=== PATIENT | female | born 1995 | race African-American/Black ===

== ENCOUNTER 2023-07-11 19:21 | Emergency (ER) | payer OTHER ==
[2023-07-11 20:43] VITALS: BP 152/98; O2SAT 100
[2023-07-11] MEDS ORDERED: IBUPROFEN 800 MG TABLET PO STA (20:49)
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
== END 2023-07-11 22:03 | disposition home or self-care (01) ==
LOC: ED 19:21
DX: S16.1XXA Strain of muscle, fascia and tendon at neck level, initial encounter (principal); S39.012A Strain of muscle, fascia and tendon of lower back, initial encounter; V59.49XA Driver of pick-up truck or van injured in collision with other motor vehicles in traffic accident, initial encounter; Y93.89 Activity, other specified; Y92.410 Unspecified street and highway as the place of occurrence of the external cause
CPT/HCPCS: 72040; 72070; 99283; A9270

== ENCOUNTER 2023-08-03 14:49 | Outpatient (CLI) | payer OTHER ==
--- NOTE | 2023-08-04 10:54 | Ultrasound Report ---
PROCEDURE: Axilla INDICATIONS: RIGHT AXILLARY MASS TECHNIQUE: Color flow and Real-time focused scanning was performed of the right axilla, with image documentation . COMPARISON: None. FINDINGS: There is a 2.2 x 0.4 x 3.7 cm oval hypoechoic area within the skin corresponding to area o f clinical concern in the right axilla. There is posterior acoustic enhancement. Color-flow imaging d emonstrates no internal vascularity. There is a visible skin tract. IMPRESSION: Right axillary skin based 3.7 cm mass with visible skin tract corresponding to area of c linical concern. Finding is benign and most consistent with epidermal inclusion cyst. Recommend clini jennifer follow-up. Reviewed by: Soniya Kingston MD on 08/04/2023 10:52 AM PST Approved by: Soniya Kingston MD on 08/04/2023 10:52 AM PST Station ID: [id number]
== END 2023-08-03 14:50 | disposition home or self-care (01) ==
LOC: DI 14:49
PROVIDERS: ATTEND Nurse Practitioner Family
DX: R22.31 Localized swelling, mass and lump, right upper limb (principal)

== ENCOUNTER 2023-08-07 05:20 | Emergency (ER) | payer OTHER ==
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
[2023-08-07 06:12] LABS: BILIRUBIN,URINE NEGATIVE (NEGATIVE); GLUCOSE, URINE (UA) NEGATIVE (NEGATIVE); KETONES,URINE (UA) NEGATIVE (NEGATIVE); LEUKOCYTE ESTERASE, URINE TRACE (NEGATIVE); NITRITE,URINE NEGATIVE (NEGATIVE); OCCULT BLOOD,URINE LARGE (NEGATIVE); PH,URINE 6.5 PH (5.0-7.5); PROTEIN,URINE NEGATIVE (NEGATIVE); UROBILINOGEN,URINE 0.2 (NORMAL) E.U./dL (NORMAL)
[2023-08-07 06:13] LABS: BASOPHILS % (AUTO) 0.4 %; EOSINOPHILS # (AUTO) 0.1 10^3/uL (0.0-0.7); EOSINOPHILS % (AUTO) 1.2 %; HCT - HEMATOCRIT 40.5 % (37.0-47.0); HGB - HEMOGLOBIN 12.9 g/dL (12.0-16.0); LYMPHOCYTES # (AUTO) 1.9 10^3/uL (1.5-3.5); LYMPHOCYTES % (AUTO) 28.4 %; MEAN CORPUSCULAR HEMOGLOBIN 28.7 pg (27.0-31.0); MEAN CORPUSCULAR HGB CONC 31.9 g/dL (32.0-36.0); MEAN PLATELET VOLUME 9.6 fL (7.9-10.8); MONOCYTES # (AUTO) 0.6 10^3/uL (0.0-1.0); MONOCYTES % (AUTO) 8.6 %; NEUTROPHILS # (AUTO) 4.1 10^3/uL (1.5-6.6); PLT - PLATELET COUNT 381 10^3/uL (130-450); RED CELL DISTRIBUTION WIDTH 13.5 % (12.0-15.0); WHITE BLOOD COUNT 6.7 x10^3/uL (4.8-10.8)
[2023-08-07 06:17] LABS: CLARITY,URINE HAZY (CLEAR); HCG UR QUAL POSITIVE
[2023-08-07 06:24] LABS: RBC,URINE TNTC /HPF (0-5); WBC,URINE 0-3 /HPF (0-5)
[2023-08-07 06:25] LABS: BACTERIA,URINE Rare /HPF (None Seen); MUCUS,URINE Few Strands; SQUAMOUS EPITHELIAL CELL,UR FEW Squamous (<= Few)
[2023-08-07 07:14] LABS: ALBUMIN 4.3 g/dL (3.2-5.5); ALBUMIN/GLOBULIN RATIO 1.3 (1.0-2.2); BILIRUBIN,TOTAL 0.3 mg/dL (0.2-1.0); CALCIUM 9.1 mg/dL (8.5-10.3); CREATININE 0.8 mg/dL (0.6-1.3); POTASSIUM 3.6 mmol/L (3.5-4.5); TOTAL PROTEIN 7.6 g/dL (6.4-8.9)
[2023-08-07 07:57] VITALS: BP 129/86; O2SAT 98
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
== END 2023-08-07 07:51 | disposition home or self-care (01) ==
LOC: ED 05:20
DX: O20.9 Hemorrhage in early pregnancy, unspecified (principal); Z3A.01 Less than 8 weeks gestation of pregnancy
CPT/HCPCS: 36415; 80053; 81001; 81003; 81025; 83690; 84702; 85025; 87086; 99283; 99284

== ENCOUNTER 2023-08-14 16:40 | Emergency (ER) | payer OTHER ==
[2023-08-14 16:51] VITALS: O2SAT 100
[2023-08-14 17:19] LABS: BASOPHILS % (AUTO) 0.4 %; EOSINOPHILS # (AUTO) 0.1 10^3/uL (0.0-0.7); EOSINOPHILS % (AUTO) 0.9 %; HCT - HEMATOCRIT 39.3 % (37.0-47.0); HGB - HEMOGLOBIN 12.6 g/dL (12.0-16.0); LYMPHOCYTES # (AUTO) 2.1 10^3/uL (1.5-3.5); LYMPHOCYTES % (AUTO) 26.9 %; MEAN CORPUSCULAR HEMOGLOBIN 28.8 pg (27.0-31.0); MEAN CORPUSCULAR HGB CONC 32.1 g/dL (32.0-36.0); MEAN CORPUSCULAR VOLUME 89.9 fL (81.0-99.0); MEAN PLATELET VOLUME 9.4 fL (7.9-10.8); MONOCYTES # (AUTO) 0.5 10^3/uL (0.0-1.0); MONOCYTES % (AUTO) 6.7 %; NEUTROPHILS # (AUTO) 5.1 10^3/uL (1.5-6.6); NEUTROPHILS % (AUTO) 64.8 %; PLT - PLATELET COUNT 372 10^3/uL (130-450); RED BLOOD COUNT 4.37 10^6/uL (4.20-5.40); RED CELL DISTRIBUTION WIDTH 13.2 % (12.0-15.0); WHITE BLOOD COUNT 7.8 x10^3/uL (4.8-10.8)
[2023-08-14 17:41] LABS: ALBUMIN 4.2 g/dL (3.2-5.5); ALBUMIN/GLOBULIN RATIO 1.2 (1.0-2.2); BILIRUBIN,TOTAL 0.3 mg/dL (0.2-1.0); CALCIUM 9.9 mg/dL (8.5-10.3); CREATININE 0.8 mg/dL (0.6-1.3); POTASSIUM 3.8 mmol/L (3.5-4.5); TOTAL PROTEIN 7.6 g/dL (6.4-8.9)
--- NOTE | 2023-08-14 19:29 | Ultrasound Report ---
PROCEDURE: OB 1st Trimester w/TV INDICATIONS: 6 weeks preg, vag bleed OUTSIDE/PRIOR DATING DATA: Last menstrual period (LMP): 06/27/2023. LMP-based estimated date of delivery (EMELY): 04/02/2024. First dating scan (date and location): 08/14/2023. Estimated date of delivery (EMELY) from first dating scan: 04/05/2024. TECHNIQUE: Real-time scanning was performed of the fetus and maternal pelvic organs, with image documentation. Endovaginal scanning was also performed to better visualize the fetus and maternal ovaries. COMPARISON: None. FINDINGS: Anteverted uterus contains a gestational sac with [id number] surrounding decidual re sponse. A small implantation bleed measuring 2.1 x 0.7 x 1.0 cm. No significant subchorionic hemorrha ge. The mean gestational sac diameter is 11 mm which corresponds to 5 week 6 day gestation. There is a single pole with an average crown-rump length of 5.7 mm which corresponds to a 6 weeks 3 days gestation. There is detectable cardiac activity at a rate of 129 bpm. A yolk sac is seen and a ppears normal. The cervix is closed. There is no free fluid in the cul-de-sac. There are 2 peripherally vascular follicle is on the right ovary, one measuring 2.3 cm and the other measuring 1.4 cm. The left ovary has a normal echotexture. No suspicious adnexal masses or free fluid. IMPRESSION: Single living intrauterine with a gestational age of 6 weeks 3 days by crown-rump length an d estimated due date of 04/05/2024. Closed cervix and small implantation bleed present. Reviewed by: Valeria Dawkins MD on 08/14/2023 7:28 PM PST Approved by: Valeria Dawkins MD on 08/14/2023 7:28 PM PST Station ID: [id number]
[2023-08-14 19:43] LABS: BILIRUBIN,URINE NEGATIVE (NEGATIVE); GLUCOSE, URINE (UA) NEGATIVE (NEGATIVE); KETONES,URINE (UA) NEGATIVE (NEGATIVE); LEUKOCYTE ESTERASE, URINE NEGATIVE (NEGATIVE); NITRITE,URINE NEGATIVE (NEGATIVE); OCCULT BLOOD,URINE TRACE-INTA (NEGATIVE); PROTEIN,URINE NEGATIVE (NEGATIVE); UROBILINOGEN,URINE 0.2 (NORMAL) E.U./dL (NORMAL)
[2023-08-14 19:44] LABS: CLARITY,URINE CLEAR (CLEAR)
--- NOTE | 2023-08-14 20:15 | ED Physician Documentation ---
PD HPI FEMALE - Stated complaint Stated Complaint: /BLEEDING - Chief complaint Chief Complaint: Abd Pain - Additional information Additional information: 28-year-old female presents to the emergency departmentRepeat ultrasound and hCG level. Patient was seen here about a week ago for possible threatened miscarriage or ectopic . They were unable to visualize gestation and recommended following up with ultrasound in 1 week and to recheck hCG levels. Patient denies any abdominal cramping or pain since ER visit and has had no repeat vaginal bleeding since ER visit. She said that she is able to get in with an [facility] APPRENTICE but she has a telemetry appointment not until mid September. No vaginal discharge no fevers or chills no other concerns or complaints at this time. 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 - Past Surgical History Past Surgical History: No - Present Medications Home Medications: Ambulatory Orders Medication Instructions Recorded Confirmed Vit No.129/Iron/Folic 1 tab PO DAILY 08/07/23 08/07/23 [ One Daily Tablet] - Allergies Allergies/Adverse Reactions: Allergies Allergy/AdvReac Type Severity Reaction Status Date / Time No Known Drug Allergies Allergy Verified 08/14/23 16:43 - Social History Does the pt smoke?: No Smoking Status: Never smoker Does the pt drink ETOH?: No Does the pt have substance abuse?: No - Immunizations Immunizations are current?: Yes - POLST Patient has POLST: No PD ED PE NORMAL - Vitals Vital signs reviewed: Yes - General General: Alert and oriented X 3, No acute distress, Well developed/nourished - Cardiac Cardiac: RRR - Respiratory Respiratory: No respiratory distress, Clear bilaterally - Abdomen Abdomen: Normal bowel sounds, Soft, Non tender - Back Back: No CVA TTP - Derm Derm: Normal color, Warm and dry, No rash - Psych Psych: Normal mood Results - Vitals Vitals: Vital Signs - 24 hr 08/14/23 08/14/23 08/14/23 16:44 18:47 20:00 Temperature 36.8 C 36.8 C 36.8 C Heart Rate 84 82 80 Respiratory 16 16 16 Rate Blood Pressure 130/80 128/80 124/80 O2 Saturation 100 100 100 08/14/23 20:21 Temperature 36.8 C Heart Rate 80 Respiratory 16 Rate Blood Pressure 124/80 O2 Saturation 100 Oxygen O2 Source Room air - Labs Labs: Laboratory Tests 08/14/23 08/14/23 08/14/23 17:12 17:12 19:05 WBC 7.8 RBC 4.37 Hgb 12.6 Hct 39.3 MCV 89.9 MCH 28.8 MCHC 32.1 RDW 13.2 Plt Count 372 MPV 9.4 Neut # (Auto) 5.1 Lymph # (Auto) 2.1 [place] # (Auto) 0.5 Eos # (Auto) 0.1 Baso # (Auto) 0.0 Absolute Nucleated RBC 0.00 Nucleated RBC % 0.0 Sodium 133 L Potassium 3.8 Chloride 101 Carbon Dioxide 25 Anion Gap 7.0 BUN 9 Creatinine 0.8 Estimated GFR (MDRD) 105 Glucose 105 H Calcium 9.9 Total Bilirubin 0.3 AST 15 ALT 12 Alkaline Phosphatase 40 L Total Protein 7.6 Albumin 4.2 Globulin 3.4 Albumin/Globulin Ratio 1.2 Lipase 14 Beta HCG, Quant 78775.3 Urine Color YELLOW Urine Clarity CLEAR Urine pH 6.0 Ur Specific [place] 1.010 Urine Protein NEGATIVE Urine Glucose (UA) NEGATIVE Urine Ketones NEGATIVE Urine Occult Blood TRACE-INTA Urine Nitrite NEGATIVE Urine Bilirubin NEGATIVE Urine Urobilinogen 0.2 (NORMAL) Ur Leukocyte Esterase NEGATIVE Ur Microscopic Review NOT INDICATED Urine Culture Comments NOT INDICATED - Rads (name of study) OB ultrasound: Relevant Findings:: Final report received, EMP independent interpretation of test (Single living intrauterine gestation age of 6 weeks 3 days. Small implantation bleed present) PD Medical Decision Making - ED course ED course: 28-year-old female here for repeat ultrasound. OB ultrasound: Single living intrauterine gestation age of 6 weeks 3 days. Small implantation bleed present Labs are complete, normal CBC, mild hyponatremia, sodium 133, glucose 105, hCG level 14,631, normal urine, no leukocytes no nitrites concerning for possible UTI Patient is reassured from ultrasound and hCG level there is no further interventions warranted at this time she is told to follow-up with [facility] APPRENTICE and she is given strict ER return precautions Departure - Departure Disposition: 01 Home, Self Care Clinical Impression: Qualifiers: Weeks of gestation: less than 8 weeks Qualified Code(s): Z3A.01 - Less than 8 weeks gestation of Condition: Good Instructions: Care Comments: Thank you for trusting us with your care your hCG level is 14,631. Your ultrasound confirms that you are at this point in time is viable and within the gestation sac. There was a small implantation bleed so as we discussed make sure going home that you are taking it easy, nothing inserted vaginally, no strenuous workout or other activity until you are able to follow- up with [facility] APPRENTICE. Please come back to the emergency department if started to develop any severe abdominal cramps or pain, vaginal bleeding, fevers or chills, or any other concerning symptoms. Forms: PCP List Discharge Date/Time: 08/14/23 20:21
[2023-08-14 20:24] VITALS: BP 124/80
== END 2023-08-14 20:21 | disposition home or self-care (01) ==
LOC: ED 16:40
DX: Z36.2 Encounter for other antenatal screening follow-up (principal); O20.9 Hemorrhage in early pregnancy, unspecified; Z3A.00 Weeks of gestation of pregnancy not specified; Z3A.01 Less than 8 weeks gestation of pregnancy
CPT/HCPCS: 36415; 80053; 81001; 81003; 83690; 84702; 85025; 87086; 99283; 99284